=== PATIENT | male | born 1945 | race Caucasian/White ===

== ENCOUNTER 2021-10-27 14:09 | Inpatient (IN) ==
[2021-10-27] MEDS ORDERED: Naloxone 0.4 MG/ML INJ IVP PRN (16:53)
[2021-10-27] MEDS ORDERED: Acetaminophen 325 MG TABLET PO PRN (16:53)
[2021-10-27] MEDS ORDERED: Ondansetron 4 MG/2 ML VIAL IVP PRN (16:53)
[2021-10-27] MEDS ORDERED: *HR* OxyCODONE Immed Rel 5 MG TABLET PO PRN (16:53)
[2021-10-27] MEDS ORDERED: *HR* Dextrose 50 % in Water (Syg) 50 ML SYRINGE IVP PRN (17:06)
[2021-10-27] MEDS ORDERED: Dextrose Gel 15 GM/37.5 ML TUBE PO PRN ×2 (17:06)
[2021-10-27] MEDS ORDERED: D5% in Water 1,000 ML IVC PRN (17:06)
[2021-10-27] MEDS ORDERED: Ipratropium/Albuterol Neb 3 ML IH PRN (17:10)
[2021-10-27 18:12] LABS: Basophils % 0.3 %; Eosinophils % 0.4 %; Hematocrit 31.5 % (37.5-50.1); Hemoglobin 10.5 g/dL (12.9-16.9); Immature Granulocytes % 0.7 % (0-4); Lymphocytes # 1.1 K/mcL (0.6-4.6); Lymphocytes % 10.8 %; Mean Corpuscular HGB Conc 33.3 g/dL (31.6-35.5); Mean Corpuscular Hemoglobin 28.9 pg (28.0-33.3); Mean Corpuscular Volume 86.8 fL (83.0-100.0); Mean Platelet Volume 8.9 fL (9.4-12.4); Monocytes # 0.7 K/mcL (0.0-1.3); Monocytes % 7.4 %; Platelet Count 386 K/mcL (140-400); Red Blood Count 3.63 M/mcL (4.19-5.50); Red Cell Distribution Width 13.7 % (11.5-14.5); Segmented Neutrophils % 80.4 %
[2021-10-27 18:18] LABS: White Blood Count 9.9 K/mcL (4.3-11.1)
[2021-10-27 18:22] LABS: INR 1.1; Prothrombin Time 12.7 Seconds (9.4-12.1)
[2021-10-27 18:25] LABS: Activated Partial Thrombo Time 34.1 Seconds (26.0-36.0)
[2021-10-27 18:34] LABS: Alanine Aminotransferase 21 Units/L (7-52); Albumin 4.1 g/dL (3.5-5.7); Albumin/Globulin Ratio 1.5 (1.1-2.2); Alkaline Phosphatase 85 Units/L (34-104); Aspartate Amino Transferase 32 Units/L (13-39); BUN/Creatinine Ratio 10 (6-26); Bilirubin,Total 0.4 mg/dL (0.3-1.0); Blood Urea Nitrogen 6 mg/dL (8-23); Calcium 8.8 mg/dL (8.6-10.3); Carbon Dioxide 27 mEq/L (23-29); Chloride 90 mEq/L (98-107); Globulin 2.8 g/dL (2.4-3.5); Glucose 102 mg/dL (70-105); Magnesium 1.8 mg/dL (1.6-2.6); Osmolality,Calculated 254 (280-300); Potassium 3.7 mEq/L (3.5-5.1); Sodium 123 mEq/L (136-145); Total Protein 6.9 g/dL (6.4-8.9); Troponin I < 0.03 ng/mL (< 0.04); eGFR For African Americans > 60 (> 60); eGFR For Non-African Americans > 60 (> 60)
[2021-10-27 18:46] LABS: Estimated Average Glucose 128 mg/dl; Hemoglobin A1C 6.1 %
[2021-10-27] MEDS: Insulin LISPRO 300 UNITS/3 ML VIAL SUBQ SCH (20:08)
[2021-10-27] MEDS: *HR* HYDROcodone/Acet 5/325 mg TABLET PO PRN (23:17)
[2021-10-28 04:45] LABS: Basophils % 0.1 %; Eosinophils # 0.1 K/mcL (0.0-0.6); Eosinophils % 1.5 %; Hematocrit 30.1 % (37.5-50.1); Hemoglobin 10.1 g/dL (12.9-16.9); Immature Granulocytes % 0.7 % (0-4); Lymphocytes # 1.4 K/mcL (0.6-4.6); Mean Corpuscular HGB Conc 33.6 g/dL (31.6-35.5); Mean Corpuscular Hemoglobin 28.9 pg (28.0-33.3); Mean Corpuscular Volume 86.2 fL (83.0-100.0); Mean Platelet Volume 8.8 fL (9.4-12.4); Monocytes # 0.8 K/mcL (0.0-1.3); Monocytes % 11.9 %; Neutrophils # 4.4 K/mcL (1.6-8.9); Platelet Count 361 K/mcL (140-400); Red Blood Count 3.49 M/mcL (4.19-5.50); Red Cell Distribution Width 13.9 % (11.5-14.5); Segmented Neutrophils % 64.8 %; White Blood Count 6.8 K/mcL (4.3-11.1)
[2021-10-28 05:06] LABS: BUN/Creatinine Ratio 11 (6-26); Blood Urea Nitrogen 7 mg/dL (8-23); Calcium 8.7 mg/dL (8.6-10.3); Carbon Dioxide 27 mEq/L (23-29); Chloride 90 mEq/L (98-107); Glucose 99 mg/dL (70-105); Osmolality,Calculated 254 (280-300); Potassium 3.9 mEq/L (3.5-5.1); Sodium 123 mEq/L (136-145); eGFR For African Americans > 60 (> 60); eGFR For Non-African Americans > 60 (> 60)
[2021-10-28] MEDS ORDERED: *HR* FentaNYL (PF) 100 MCG/2 ML VIAL IVP PRN (07:23)
[2021-10-28] MEDS ORDERED: CeFAZolin Syr 2,000MG/20 ML 2,000 MG/20 ML SYRINGE IVPB ONE (07:29)
[2021-10-28] MEDS ORDERED: *HR* FentaNYL (PF) 100 MCG/2 ML VIAL ONE (07:34)
[2021-10-28] MEDS ORDERED: *HR* Rocuronium Bromide 50 MG/5 ML VIAL ONE (07:34)
[2021-10-28] MEDS ORDERED: Lidocaine -MPF 2% 5 ML VIAL ONE (07:34)
[2021-10-28] MEDS ORDERED: *HR* Propofol 200 MG/20 ML VIAL IVP ONE (07:34)
[2021-10-28] MEDS ORDERED: Lidocaine HCL 4 ML Topical Solution (Laryng-O-Jet Kit Sterile Pak) TP ONE (07:34)
[2021-10-28] MEDS ORDERED: Ondansetron 4 MG/2 ML VIAL ONE (07:34)
[2021-10-28] MEDS ORDERED: *HR* Vasopressin 20 UNIT/ML VIAL ONE (07:41)
[2021-10-28] MEDS ORDERED: Tranexamic Acid 1,000 MG/10 ML VIAL ONE ×2 (08:21)
[2021-10-28] MEDS ORDERED: Sugammadex Sodium 200 MG/2 ML VIAL IV ONE (08:51)
[2021-10-28] MEDS ORDERED: *HR* OxyCODONE Immed Rel 5 MG TABLET PO ONE (09:28)
[2021-10-28] MEDS: CeFAZolin 2 GM/120 ML BAG IVPB SCH ×2 (16:22→23:38)
[2021-10-28] MEDS: atenoloL 25 MG TABLET PO SCH (16:22)
[2021-10-28] MEDS: Insulin LISPRO 300 UNITS/3 ML VIAL SUBQ SCH ×4 (16:24→21:47)
[2021-10-28] MEDS: Primidone 50 MG TABLET PO SCH (21:47)
[2021-10-28] MEDS: Gabapentin 300 MG CAPSULE PO SCH (21:47)
[2021-10-29 05:55] LABS: Basophils % 0.3 %; Eosinophils % 0.4 %; Hematocrit 28.5 % (37.5-50.1); Hemoglobin 9.4 g/dL (12.9-16.9); Immature Granulocytes % 0.5 % (0-4); Lymphocytes # 1.5 K/mcL (0.6-4.6); Lymphocytes % 20.6 %; Mean Corpuscular Hemoglobin 28.6 pg (28.0-33.3); Mean Corpuscular Volume 86.6 fL (83.0-100.0); Mean Platelet Volume 9.1 fL (9.4-12.4); Monocytes # 1.1 K/mcL (0.0-1.3); Monocytes % 14.1 %; Neutrophils # 4.8 K/mcL (1.6-8.9); Platelet Count 353 K/mcL (140-400); Red Blood Count 3.29 M/mcL (4.19-5.50); Red Cell Distribution Width 13.8 % (11.5-14.5); Segmented Neutrophils % 64.1 %; White Blood Count 7.5 K/mcL (4.3-11.1)
[2021-10-29 05:56] LABS: Hemoglobin 9.2 g/dL (12.9-16.9)
[2021-10-29 06:18] LABS: Albumin 3.7 g/dL (3.5-5.7); Albumin/Globulin Ratio 1.4 (1.1-2.2); Bilirubin,Direct 0.1 mg/dL (0.0-0.2); Bilirubin,Indirect 0.3 mg/dL (0.0-1.0); Bilirubin,Total 0.4 mg/dL (0.3-1.0); Globulin 2.6 g/dL (2.4-3.5); Total Protein 6.3 g/dL (6.4-8.9)
[2021-10-29 06:19] LABS: BUN/Creatinine Ratio 8 (6-26); Blood Urea Nitrogen 5 mg/dL (8-23); Calcium 8.6 mg/dL (8.6-10.3); Carbon Dioxide 29 mEq/L (23-29); Chloride 93 mEq/L (98-107); Glucose 91 mg/dL (70-105); Osmolality,Calculated 263 (280-300); Potassium 3.7 mEq/L (3.5-5.1); Sodium 128 mEq/L (136-145); eGFR For African Americans > 60 (> 60); eGFR For Non-African Americans > 60 (> 60)
[2021-10-29] MEDS: Insulin LISPRO 300 UNITS/3 ML VIAL SUBQ SCH ×4 (07:50→22:07)
[2021-10-29] MEDS: Gabapentin 300 MG CAPSULE PO SCH ×2 (08:01→22:07)
[2021-10-29] MEDS: amLODIPine 5 MG TABLET PO SCH (08:01)
[2021-10-29] MEDS: Apixaban 5 MG TABLET PO SCH ×2 (08:01→22:07)
[2021-10-29] MEDS: atenoloL 25 MG TABLET PO SCH (08:01)
[2021-10-29] MEDS: Primidone 50 MG TABLET PO SCH ×2 (08:01→22:07)
[2021-10-29] MEDS: Venlafaxine XR (24 HR) 150 MG CAP.ER.24H PO SCH (08:01)
[2021-10-29] MEDS: Ringers Solution, Lactated 1,000 ML IVC SCH ×2 (08:02)
[2021-10-29] MEDS: *HR* HYDROcodone/Acet 5/325 mg TABLET PO PRN (16:15)
[2021-10-30 06:32] LABS: Hemoglobin 8.9 g/dL (12.9-16.9)
[2021-10-30 06:34] LABS: Basophils % 0.3 %; Eosinophils # 0.1 K/mcL (0.0-0.6); Eosinophils % 1.2 %; Hematocrit 27.1 % (37.5-50.1); Immature Granulocytes % 0.8 % (0-4); Lymphocytes # 1.3 K/mcL (0.6-4.6); Lymphocytes % 18.1 %; Mean Corpuscular HGB Conc 33.2 g/dL (31.6-35.5); Mean Corpuscular Hemoglobin 28.5 pg (28.0-33.3); Mean Corpuscular Volume 85.8 fL (83.0-100.0); Mean Platelet Volume 9.1 fL (9.4-12.4); Monocytes # 0.9 K/mcL (0.0-1.3); Monocytes % 11.8 %; Neutrophils # 4.9 K/mcL (1.6-8.9); Platelet Count 336 K/mcL (140-400); Red Blood Count 3.16 M/mcL (4.19-5.50); Red Cell Distribution Width 13.8 % (11.5-14.5); Segmented Neutrophils % 67.8 %; White Blood Count 7.3 K/mcL (4.3-11.1)
[2021-10-30 07:29] LABS: BUN/Creatinine Ratio 9 (6-26); Blood Urea Nitrogen 5 mg/dL (8-23); Calcium 8.7 mg/dL (8.6-10.3); Carbon Dioxide 25 mEq/L (23-29); Chloride 92 mEq/L (98-107); Glucose 98 mg/dL (70-105); Osmolality,Calculated 259 (280-300); Potassium 3.7 mEq/L (3.5-5.1); Sodium 126 mEq/L (136-145); eGFR For African Americans > 60 (> 60); eGFR For Non-African Americans > 60 (> 60)
[2021-10-30] MEDS: Apixaban 5 MG TABLET PO SCH ×2 (07:47→22:01)
[2021-10-30] MEDS: Venlafaxine XR (24 HR) 150 MG CAP.ER.24H PO SCH (07:47)
[2021-10-30] MEDS: Gabapentin 300 MG CAPSULE PO SCH ×2 (07:47→22:01)
[2021-10-30] MEDS: amLODIPine 5 MG TABLET PO SCH (07:48)
[2021-10-30] MEDS: Primidone 50 MG TABLET PO SCH ×2 (07:48→22:01)
[2021-10-30] MEDS: *HR* HYDROcodone/Acet 5/325 mg TABLET PO PRN ×2 (07:48→22:01)
[2021-10-30] MEDS: atenoloL 25 MG TABLET PO SCH (07:48)
[2021-10-30] MEDS: Insulin LISPRO 300 UNITS/3 ML VIAL SUBQ SCH ×4 (07:48→22:02)
[2021-10-30] MEDS: Cyanocobalamin (B-12) 1,000 MCG TABLET PO SCH (12:24)
[2021-10-30] MEDS: Ringers Solution, Lactated 1,000 ML IVC SCH (12:25)
[2021-10-30] MEDS ORDERED: Cyanocobalamin (B-12) 1,000 MCG/ML VIAL SQ SCH (15:12)
[2021-10-30] MEDS: Iron Sucrose Complex 200 MG in 0.9 % Sodium Chloride 100 ML IVPB SCH (16:21)
[2021-10-31 02:11] LABS: Hematocrit 25.2 % (37.5-50.1); Hemoglobin 8.5 g/dL (12.9-16.9); Immature Granulocytes % 1.1 % (0-4); Lymphocytes % 22.2 %; Mean Corpuscular HGB Conc 33.7 g/dL (31.6-35.5); Mean Corpuscular Hemoglobin 29.2 pg (28.0-33.3); Mean Corpuscular Volume 86.6 fL (83.0-100.0); Mean Platelet Volume 9.1 fL (9.4-12.4); Monocytes % 14.7 %; Platelet Count 340 K/mcL (140-400); Red Blood Count 2.91 M/mcL (4.19-5.50); Red Cell Distribution Width 13.7 % (11.5-14.5); Segmented Neutrophils % 59.5 %; White Blood Count 6.7 K/mcL (4.3-11.1)
[2021-10-31 02:12] LABS: Basophils % 0.5 %; Eosinophils # 0.1 K/mcL (0.0-0.6); Lymphocytes # 1.5 K/mcL (0.6-4.6)
[2021-10-31 02:29] LABS: BUN/Creatinine Ratio 11 (6-26); Blood Urea Nitrogen 7 mg/dL (8-23); Calcium 8.6 mg/dL (8.6-10.3); Carbon Dioxide 29 mEq/L (23-29); Chloride 91 mEq/L (98-107); Glucose 89 mg/dL (70-105); Magnesium 1.8 mg/dL (1.6-2.6); Osmolality,Calculated 259 (280-300); Sodium 126 mEq/L (136-145); eGFR For African Americans > 60 (> 60); eGFR For Non-African Americans > 60 (> 60)
[2021-10-31] MEDS: Insulin LISPRO 300 UNITS/3 ML VIAL SUBQ SCH ×2 (07:56→13:30)
[2021-10-31] MEDS: Gabapentin 300 MG CAPSULE PO SCH (09:43)
[2021-10-31] MEDS: Primidone 50 MG TABLET PO SCH (09:43)
[2021-10-31] MEDS: Apixaban 5 MG TABLET PO SCH (09:43)
[2021-10-31] MEDS: amLODIPine 5 MG TABLET PO SCH (09:43)
[2021-10-31] MEDS: Venlafaxine XR (24 HR) 150 MG CAP.ER.24H PO SCH (09:43)
[2021-10-31] MEDS: atenoloL 25 MG TABLET PO SCH (09:43)
[2021-10-31] MEDS: Cyanocobalamin (B-12) 1,000 MCG TABLET PO SCH (09:44)
[2021-10-31] MEDS: Iron Sucrose Complex 200 MG in 0.9 % Sodium Chloride 100 ML IVPB SCH (09:44)
[2021-10-31 10:28] VITALS: BP 136/64; PULSE 83; TEMP 99.5; O2SAT 96
[2021-10-31 12:46] LABS: Influenza A PCR Negative (Negative); Influenza B PCR Negative (Negative); Resp. Syncytial Virus PCR Negative (Negative)
[2021-10-31 12:47] LABS: SARS-CoV-2 by PCR (In House) Negative (Negative)
== END 2021-10-31 14:19 | disposition other institution (70) | DRG 481 ==
LOC: 4WAOSI → SUATTDRO 15:32
PROVIDERS: ADMIT Family Medicine; ATTEND Internal Medicine